=== PATIENT | male | born 1960 | race African-American/Black ===

== ENCOUNTER 2019-03-25 20:23 | Emergency (ER) | payer OTHER ==
[~2019-03-25] VITALS: Ht 185.4 cm; Wt 112.5 kg
[2019-03-25 20:41] VITALS: BP 220/95
== END 2019-03-26 04:06 | disposition left against medical advice (07) ==
LOC: ER 20:41
DX: R07.89 Other chest pain (principal); Z53.21 Procedure and treatment not carried out due to patient leaving prior to being seen by health care provider